=== PATIENT | female | born 1995 | race Caucasian/White ===

== ENCOUNTER 2017-03-08 15:45 | Inpatient (IN) | payer OTHER ==
[2017-03-08] MEDS ORDERED: DINOPROSTONE 10 MG VAGINAL SUPPOSITORY VG ONE (15:50)
--- NOTE | 2017-03-08 16:08 | HP ---
Past Medical History - Admission History of Present Illness: 21 yo , who transferred her care 4 weeks ago form [facility], admitted for induction of labor. Based on her care in [facility], her due date is 03/08/17. She c/o lower abdominal cramps and bloody discharge. History Source: Patient Limitations to Obtaining History: No Limitations - Past Medical History ...: 1 ...Para: 0 - Past Surgical History Past Surgical History: Yes: None Hx Myomectomy: No Hx Transabdominal Cerclage: No - Alcohol/Substance Use Hx Alcohol Use: No History of Substance Use: reports: None Home Medications - Allergies Allergies/Adverse Reactions: Allergies Allergy/AdvReac Type Severity Reaction Status Date / Time No Known Allergies Allergy Verified 03/04/17 08:43 - Home Medications Home Medications: Ambulatory Orders Vit/Iron Fumarate/FA [ Tablet] 1 tab PO DAILY 03/04/17 Family Disease History - Family Disease History Family History: Unremarkable Review of Systems - Review of Systems Constitutional: reports: No Symptoms Eyes: reports: No Symptoms HENT: reports: No Symptoms Neck: reports: No Symptoms Cardiovascular: reports: No Symptoms Respiratory: reports: No Symptoms Gastrointestinal: reports: No Symptoms Genitourinary: reports: Pain, Other (Bloody discharge) Breasts: reports: No Symptoms Reported Musculoskeletal: reports: No Symptoms Neurological: reports: No Symptoms Endocrine: reports: No Symptoms Hematology/Lymphatic: reports: No Symptoms Psychiatric: reports: No Symptoms Pain Intensity: 3 Physical Exam - Maternity Constitutional: Yes: Well Nourished Eyes: Yes: Conjunctiva Clear HENT: Yes: Atraumatic Neck: Yes: Supple Cardiovascular: Yes: Regular Rate and Rhythm Lungs: Clear to auscultation - Abdominal Exam/OB Number of Fetuses: Single Presentation: Vertex - Vaginal Exam/OB Dilatation (cm): 1 Effacement (%): 70 Amniotic Membrane Status: Intact Station: -2 - Physical Exam ...Motor Strength: WNL Psychiatric: Yes: Alert, Oriented Assessment/Plan IUP @ term Admit for induction of labor Cervidil induction Re-evaluate in 12 hours or before if indicated
[2017-03-08 16:23] VITALS: BMI 28.3
[2017-03-08] MEDS ORDERED: TUBERCULIN PPD 5 TU/0.1ML SYRINGE (IN PATIENT USE ONLY) ID ONE (18:04)
[2017-03-08 19:10] LABS: BASOPHIL 0.3 % (0-2.0); EOSINOPHIL 0.4 % (0-4.5); MCH 29.7 pg (25.7-33.7); MCHC 34.4 g/dl (32.0-36.0); MEAN CELL VOLUME 86.3 fl (80-96); MEAN PLT VOLUME 7.5 fl (7.5-11.1); NEUTROPHILS 61.4 % (42.8-82.8); PLATELET COUNT 294 K/MM3 (134-434); RDW 13.2 % (11.6-15.6); WHITE BLOOD COUNT 11.8 K/mm3 (4.0-10.0)
[2017-03-08 19:37] LABS: INR 0.94 (0.82-1.09); PROTHROMBIN TIME (PATIENT) 10.6 SEC (9.98-11.88)
[2017-03-08 19:40] LABS: ACTIVATED PTT 28.5 SECONDS (26.9-34.4)
[2017-03-08 19:44] LABS: ANION GAP 8 (8-16); CALCIUM 8.3 mg/dL (8.5-10.1); CO2 25 mmol/L (21-32); CREATININE 0.5 mg/dL (0.55-1.02); GLUCOSE,RANDOM 94 mg/dL (74-106)
[2017-03-08] MEDS: ELECTROLYTE-148 SOLN 1,000 ML IV SCH (20:15)
[2017-03-08 20:30] LABS: URINE MARIJUANA THC NEGATIVE ng/ml (CUTOFF=50)
[2017-03-08] MEDS ORDERED: AMPICILLIN - 2 GM in SODIUM CHLORIDE 100 ML IVPB ONE (21:00)
[2017-03-08] MEDS: AMPICILLIN - 1 GM in SODIUM CHLORIDE 100 ML IVPB SCH (23:29)
[2017-03-09] MEDS: AMPICILLIN - 1 GM in SODIUM CHLORIDE 100 ML IVPB SCH ×5 (01:00→21:28)
--- NOTE | 2017-03-09 06:33 | PN ---
Progress Note (short form) - Note Progress Note: Patient seen and evaluated. She c/o mild discomfort. She's status post Cervidil induction. FHR : 140-150's, no accelerations, non- reassuring [place] : + contractions q 1 min VE : 70 / -2 Intact A/P : Status post cervidil induction Non-Reassuring FHR Prep and shave Consent Consider
[2017-03-09] MEDS ORDERED: METHYLERGONOVINE MALEATE 0.2 MG/1 ML AMP IM PRN (08:30)
--- NOTE | 2017-03-09 08:34 | OP ---
Operative Note - Note: Operative Date: 03/09/17 Pre-Operative Diagnosis: Failed induction / Non-Reassuring Heart Rate Operation: Primary Low Transverse Findings: Bicornuate uterus Baby boy in Cephalic presentation Surgeon: Magalie Alarcon Air Tucker: Inez Flores Anesthesia: Spinal Specimens Removed: Placenta Estimated Blood Loss (mls): 500 Operative Report Dictated: Yes
--- NOTE | 2017-03-09 08:38 | DS ---
Physical Exam-WAREHOUSE RECEIVING SUPERVISOR Vital Signs: Vital Signs Temperature 97.9 F 03/09/17 05:00 Pulse Rate 87 03/09/17 05:00 Respiratory Rate 20 03/09/17 05:00 Blood Pressure 118/78 03/09/17 05:00 O2 Sat by Pulse Oximetry (%) Constitutional: Yes: Well Nourished Eyes: Yes: Conjunctiva Clear HENT: Yes: Atraumatic Neck: Yes: Supple, Trachea Midline Cardiovascular: Yes: Regular Rate and Rhythm Respiratory: Yes: Regular, CTA Bilaterally Gastrointestinal: Yes: Normal Bowel Sounds External Genitalia: Yes: Normal Vaginal Exam: Yes: Normal Cervix: Yes: Normal Wound/Incision: Yes: Clean/Dry, Steri Strips (in place) Neurological: Yes: Alert, Oriented ...Motor Strength: WNL Psychiatric: Yes: Alert, Oriented Labs: CBC, BMP 03/08/17 18:40 03/08/17 18:40 Delivery - Delivery Section: Primary Type of Anesthesia: Spinal EBL (cc): 500 Delivery, Single - Feeding Plan Initial Plan: Elected not to breastfeed exclusively throughout hospitalization Discharge Summary Reason For Visit: INDUCTION OF LABOR Current Active Problems Status post primary low transverse section (Acute) Uterus bicornis 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
[2017-03-09] MEDS ORDERED: ONDANSETRON 4 MG/2 ML VIAL IVPUSH PRN (08:45)
[2017-03-09] MEDS ORDERED: morphine SULFATE/Preservative Free 0.5 MG/ML (1cc Syringe) EP ONE (08:45)
--- NOTE | 2017-03-09 09:07 | OP ---
DATE OF OPERATION: 03/09/2017 PREOPERATIVE DIAGNOSIS: Failed induction and nonreassuring heart rate. POSTOPERATIVE DIAGNOSIS: Failed induction, nonreassuring heart rate, and bicornuate uterus affecting . SURGEON: Magalie Alarcon MD PACKING MACHINE PILOT CAN ROUTER: Dr. Porter ANESTHESIA: Spinal. COMPLICATIONS: None. ESTIMATED BLOOD LOSS: 500 mL. DESCRIPTION OF PROCEDURE: The patient was taken to the operating room where spinal anesthesia was administered. The patient was then prepped and draped in proper sterile fashion. A Pfannenstiel skin incision was made and carried down to the underlying layer of fascia. The fascia was incised in the midline and extended laterally. The superior aspect of the fascial incision was then grasped with a Jeanie clamp, elevated, and the rectus muscle dissected off bluntly. Attention was then turned to the inferior aspect of the fascial incision, which in a similar fashion was then grasped with a Jeanie clamp, elevated, and the rectus muscle dissected off bluntly. The rectus muscle was then in the midline. The peritoneum was identified and entered sharply with the Metzenbaum scissors. The peritoneal incision was extended superiorly and inferiorly with good visualization of the bladder. The vesicouterine peritoneum was then grasped with a Tashi and entered sharply with Metzenbaum scissors. This incision was extended laterally and a bladder flap created digitally. The bladder blade was reinserted. Using a 10 blade, the lower uterine segment was incised and the head delivered atraumatically. Nose and mouth were suctioned and the cord clamped and cut. The infant was handed to the awaiting sheet metal mechanic. The placenta was removed manually. The uterus exteriorized and cleared of all clots and debris. There was evidence of a bicornuate uterus with no separation in the midline. The uterus was then repaired using 0 Biosyn in a running, locked fashion. A 2nd layer of the same suture was used as a means to provide excellent hemostasis. The pelvis was then irrigated. The uterus was returned to the abdomen. The peritoneum was closed using 2-0 Biosyn. The fascia was reapproximated using 0 Vicryl in a running fashion. The skin was closed in a subcuticular fashion using 3-0 Vicryl. The patient tolerated the procedure well. The patient was then taken to PACU in stable condition. PATHOLOGY: Placenta. Renuka SERVIN/[id number]
[2017-03-09] MEDS: OXYTOCIN 20 UNITS in 0.9% NS 1,000 ML IV SCH (09:45)
[2017-03-09] MEDS: PRENATAL VITAMINS W/ FOLIC ACID TABLET (FP) PO SCH (09:54)
[2017-03-09] MEDS: IBUPROFEN 800 MG/8 ML IJ IVPB PRN ×3 (10:00→23:07)
[2017-03-09] MEDS: FERROUS SO4 325 MG TABLET (FP) PO SCH (10:13)
[2017-03-09] MEDS: ELECTROLYTE-148 SOLN 1,000 ML IV SCH (17:34)
[2017-03-10] MEDS: AMPICILLIN - 1 GM in SODIUM CHLORIDE 100 ML IVPB SCH ×2 (02:05→05:23)
--- NOTE | 2017-03-10 07:24 | PN ---
Post Progress Note - Subjective Subjective: Pt seen/evaluated and doing well post op. Pain controlled, tolerating diet. Ambulating, voiding. Denies CP/SOB/F/C/CHAPA. Type of Delivery: Primary C/S Vital Signs: Vital Signs Temperature 98.4 F 03/10/17 06:00 Pulse Rate 77 03/10/17 06:00 Respiratory Rate 20 03/10/17 06:00 Blood Pressure 98/66 03/10/17 06:00 O2 Sat by Pulse Oximetry (%) 100 03/09/17 09:25 Uterus: Yes: Fundus Firm, Fundus below umbilicus Incision: Yes: Dressing dry and intact Abdomen/GI: Yes: Abdomen soft, Tender (appropriately tender post op ), Tolerating PO. No: Abdominal Distention Extremities: Yes: Calves non-tender Perineum: Yes: Intact Activity: Ambulating - Labs Labs: CBC WBC 11.8 K/mm3 (4.0-10.0) H 03/08/17 18:40 RBC 3.77 M/mm3 (3.60-5.2) 03/08/17 18:40 Hgb 11.2 GM/dL (10.7-15.3) 03/08/17 18:40 Hct 32.6 % (32.4-45.2) 03/08/17 18:40 MCV 86.3 fl (80-96) 03/08/17 18:40 MCH 29.7 pg (25.7-33.7) 03/08/17 18:40 MCHC 34.4 g/dl (32.0-36.0) 03/08/17 18:40 RDW 13.2 % (11.6-15.6) 03/08/17 18:40 Plt Count 294 K/MM3 (134-434) 03/08/17 18:40 MPV 7.5 fl (7.5-11.1) 03/08/17 18:40 Neutrophils % 61.4 % (42.8-82.8) 03/08/17 18:40 Lymphocytes % 29.7 % (8-40) 03/08/17 18:40 Monocytes % 8.2 % (3.8-10.2) 03/08/17 18:40 Eosinophils % 0.4 % (0-4.5) 03/08/17 18:40 Basophils % 0.3 % (0-2.0) 03/08/17 18:40 Problem List - Problems (1) Status post primary low transverse section Code(s): Z98.891 - HISTORY OF UTERINE SCAR FROM PREVIOUS SURGERY Assessment/Plan 21 y/o POD#1 s/p primary delivery - AFVSS - CBC pending today - advance diet as tolerated, encourage ambulation - PO pain meds - routine post /post op care
[2017-03-10] MEDS: FERROUS SO4 325 MG TABLET (FP) PO SCH ×2 (07:43→16:50)
[2017-03-10] MEDS: ACETAMINOPHEN 325 MG TABLET (FP) PO PRN ×2 (08:04→14:05)
[2017-03-10] MEDS ORDERED: BISACODYL 10 MG SUPP.RECT RC PRN (08:31)
[2017-03-10 08:38] LABS: BASOPHIL 0.4 % (0-2.0); EOSINOPHIL 0.1 % (0-4.5); MCH 29.4 pg (25.7-33.7); MCHC 34.4 g/dl (32.0-36.0); MEAN CELL VOLUME 85.7 fl (80-96); MEAN PLT VOLUME 6.7 fl (7.5-11.1); NEUTROPHILS 80.3 % (42.8-82.8); PLATELET COUNT 247 K/MM3 (134-434); RDW 13.5 % (11.6-15.6); WHITE BLOOD COUNT 14.1 K/mm3 (4.0-10.0)
--- NOTE | 2017-03-10 09:25 | PN ---
Progress Note (short form) - Note Progress Note: ANESTHESIOLOGY POST-OP CHECK 21F S/P under spinal anesthesia, POD #1. No acuter complaints. Tolerating PO, denies N/V. Ambulating, voiding. Pain 5/10 and tolerable. Vital Signs Temperature 98.6 F 03/10/17 08:27 Pulse Rate 101 H 03/10/17 08:27 Respiratory Rate 20 03/10/17 08:27 Blood Pressure 100/65 03/10/17 08:27 O2 Sat by Pulse Oximetry (%) 100 03/09/17 09:25 Active Medications Acetaminophen (Tylenol -) 650 mg PO Q4H PRN PRN Reason: FEVER OR PAIN Last Admin: 03/10/17 08:04 Dose: 650 mg Bisacodyl (Dulcolax Suppository -) 10 mg RC PRN PRN PRN Reason: CONSTIPATION Diphenhydramine HCl (Benadryl Injection -) 25 mg IVPUSH Q4H PRN PRN Reason: Pruritis Ferrous Sulfate (Feosol -) 325 mg PO BIDWM [facility] Last Admin: 03/10/17 07:43 Dose: Not Given Parenteral Electrolytes (Plasma-Lyte 148 -) 1,000 mls @ 125 mls/hr IV ASDIR [facility] Last Admin: 03/09/17 17:34 Dose: Not Given Oxytocin/Sodium Chloride (Normal Saline+20 Units Oxytocin -) 1,000 mls @ 125 mls/hr IV ASDIR [facility] Last Admin: 03/09/17 09:45 Dose: 125 mls/hr Ibuprofen (Motrin -) 600 mg PO Q4H PRN PRN Reason: PAIN Ibuprofen (Caldolor Injection -) 800 mg IVPB Q8H PRN PRN Reason: PAIN OR FEVER Last Admin: 03/09/17 23:07 Dose: 800 mg Influenza Virus Vaccine Quadrival (Fluarix Quad 3144-1033 Syringe) 60 mcg IM ONCE ONE Stop: 03/10/17 10:01 Methylergonovine Maleate (Methergine Injection -) 0.2 mg IM Q4H PRN PRN Reason: Excessive Bleeding (L&D) Oxycodone HCl (Roxicodone -) 5 mg PO Q4H PRN PRN Reason: PAIN LEVEL 1-5 Multivit/Folic Acid/Iron ( Vitamins (Sjr) -) 1 tab PO DAILY DOMENIC Last Admin: 03/09/17 09:54 Dose: Not Given Simethicone (Mylicon -) 80 mg PO Q4H PRN PRN Reason: GAS GEn: Awake, alert No apparent anesthesia complications. PAin controlled. Cont management as per primary team
[2017-03-10] MEDS: SIMETHICONE 80 MG TAB.CHEW (FP) PO PRN ×2 (09:49→14:03)
[2017-03-10] MEDS: IBUPROFEN 600 MG TABLET (FP) PO PRN (09:49)
[2017-03-10] MEDS: PRENATAL VITAMINS W/ FOLIC ACID TABLET (FP) PO SCH (09:49)
[2017-03-10] MEDS ORDERED: FLU VACC QS2017-18 36MOS UP/PF 60 MCG/0.5 ML SYRINGE IM ONE (10:00)
[2017-03-10] MEDS: OXYTOCIN 20 UNITS in 0.9% NS 1,000 ML IV SCH (10:58)
[2017-03-10] MEDS: oxyCODONE HCL 5 MG TABLET PO PRN (14:03)
[2017-03-11] MEDS: oxyCODONE HCL 5 MG TABLET PO PRN (07:36)
[2017-03-11] MEDS: ACETAMINOPHEN 325 MG TABLET (FP) PO PRN (07:36)
--- NOTE | 2017-03-11 08:13 | PN ---
Progress Note (short form) - Note Progress Note: ANESTHESIOLOGY POST-OP CHECK 21F S/P under spinal anesthesia, POD #2. C/o bilateral frontal- occipital headache 10 severity with some mildly blurred vision. Symptoms improve in supine position.. Ambulating, voiding. Denies tinnitus or hearing loss. Vital Signs Temperature 98.0 F 03/10/17 21:43 Pulse Rate 108 H 03/10/17 21:43 Respiratory Rate 20 03/10/17 21:43 Blood Pressure 103/64 03/10/17 21:43 O2 Sat by Pulse Oximetry (%) 100 03/09/17 09:25 Active Medications Acetaminophen/Butalbital/Caffeine (Fioricet -) 2 tablet PO Q4H DOMENIC Bisacodyl (Dulcolax Suppository -) 10 mg RC PRN PRN PRN Reason: CONSTIPATION Diphenhydramine HCl (Benadryl Injection -) 25 mg IVPUSH Q4H PRN PRN Reason: Pruritis Ferrous Sulfate (Feosol -) 325 mg PO BIDWM [facility] Last Admin: 03/10/17 16:50 Dose: 325 mg Parenteral Electrolytes (Plasma-Lyte 148 -) 1,000 mls @ 125 mls/hr IV ASDIR [facility] Last Admin: 03/09/17 17:34 Dose: Not Given Parenteral Electrolytes (Plasma-Lyte 148 -) 1,000 mls @ 125 mls/hr IV ASDIR [facility]EN[facility] Ibuprofen (Motrin -) 600 mg PO Q4H PRN PRN Reason: PAIN Last Admin: 03/10/17 09:49 Dose: 600 mg Ibuprofen (Caldolor Injection -) 800 mg IVPB Q8H PRN PRN Reason: PAIN OR FEVER Last Admin: 03/09/17 23:07 Dose: 800 mg Methylergonovine Maleate (Methergine Injection -) 0.2 mg IM Q4H PRN PRN Reason: Excessive Bleeding (L&D) Oxycodone HCl (Roxicodone -) 5 mg PO Q4H PRN PRN Reason: PAIN LEVEL 1-5 Last Admin: 03/11/17 07:36 Dose: 5 mg Multivit/Folic Acid/Iron ( Vitamins (Sjr) -) 1 tab PO DAILY DOMENIC Last Admin: 03/10/17 09:49 Dose: 1 tab Simethicone (Mylicon -) 80 mg PO Q4H PRN PRN Reason: GAS Last Admin: 03/10/17 14:03 Dose: 80 mg GEn: Awake, alert Pt sitting in chair, reports headache 02/26. Pt laid supine and headache resolves. 21F s/p spinal anesthesia now with likely post-dural puncture headache. Pt informed of treatment approaches available to her: conservative vs epidural blood patch and the details of both discussed and patient expresses understanding and wishes to proceed with conservative therapy at this time. Patient aware she may call us back at any time if wishes to proceed with blood patch. Instructed nurse regarding new orders. - Start Fioricet 2 tabs PO q4 hours - Maintain IV fluid hydration and encourage PO fluids - Encourage PO caffeine (coffee/tea etc.) - Encourage bedrest as much as possible - Please call anesthesia at patients' request
[2017-03-11] MEDS ORDERED: ELECTROLYTE-148 SOLN 1,000 ML IV SCH (08:15)
[2017-03-11] MEDS: IBUPROFEN 600 MG TABLET (FP) PO PRN (08:37)
[2017-03-11] MEDS: FERROUS SO4 325 MG TABLET (FP) PO SCH ×2 (09:51→17:13)
[2017-03-11] MEDS: PRENATAL VITAMINS W/ FOLIC ACID TABLET (FP) PO SCH (09:51)
[2017-03-11] MEDS: ACETAMINOPHEN/CAFFEINE/BUTALBITAL 1 TAB PO SCH ×3 (11:49→20:43)
--- NOTE | 2017-03-11 11:50 | PN ---
Post Progress Note - Subjective Subjective: Pt c/o headache. Seen by anesthesia for ? spinal headache for possible blood patch. Currently patient refusing blood patch but states the po meds are helping. Otherwise feeling well. Pain controlled. +flatus and urination, no bowel movements. Denies CP/SOB/F/C/CHAPA. Type of Delivery: Primary C/S Vital Signs: Vital Signs Temperature 99.1 F 03/11/17 10:00 Pulse Rate 120 H 03/11/17 10:00 Respiratory Rate 20 03/11/17 10:00 Blood Pressure 113/78 03/11/17 10:00 O2 Sat by Pulse Oximetry (%) 100 03/09/17 09:25 Uterus: Yes: Fundus Firm, Fundus below umbilicus Incision: Yes: Sutures intact Abdomen/GI: Yes: Abdomen soft, Passing flatus, Tolerating PO. No: Abdominal Distention, Tender Lochia, amount: Small Extremities: Yes: Calves non-tender. No: Edema Perineum: Yes: Intact Activity: Ambulating - Labs Labs: CBC WBC 14.1 K/mm3 (4.0-10.0) H 03/10/17 08:00 RBC 3.22 M/mm3 (3.60-5.2) L 03/10/17 08:00 Hgb 9.5 GM/dL (10.7-15.3) L D 03/10/17 08:00 Hct 27.6 % (32.4-45.2) L D 03/10/17 08:00 MCV 85.7 fl (80-96) 03/10/17 08:00 MCH 29.4 pg (25.7-33.7) 03/10/17 08:00 MCHC 34.4 g/dl (32.0-36.0) 03/10/17 08:00 RDW 13.5 % (11.6-15.6) 03/10/17 08:00 Plt Count 247 K/MM3 (134-434) 03/10/17 08:00 MPV 6.7 fl (7.5-11.1) L D 03/10/17 08:00 Neutrophils % 80.3 % (42.8-82.8) D 03/10/17 08:00 Lymphocytes % 14.2 % (8-40) D 03/10/17 08:00 Monocytes % 5.0 % (3.8-10.2) 03/10/17 08:00 Eosinophils % 0.1 % (0-4.5) 03/10/17 08:00 Basophils % 0.4 % (0-2.0) 03/10/17 08:00 Problem List - Problems (1) Status post primary low transverse section Code(s): Z98.891 - HISTORY OF UTERINE SCAR FROM PREVIOUS SURGERY (2) Headache Code(s): R51 - HEADACHE Assessment/Plan 21 y/o POD#2 s/p primary delivery - AFVSS - Hgb 9.5 post op, stable and doing well - advance diet as tolerated, encourage ambulation - PO pain meds - CHAPA - continue PO analgesics for now, anesthesia evaluated for possible blood patch - pt currently refusing. - routine post /post op care
[2017-03-11] MEDS: SIMETHICONE 80 MG TAB.CHEW (FP) PO PRN (20:43)
[2017-03-12] MEDS: ACETAMINOPHEN/CAFFEINE/BUTALBITAL 1 TAB PO SCH ×6 (00:33→20:15)
[2017-03-12 07:20] LABS: BASOPHIL 0.5 % (0-2.0); EOSINOPHIL 3.3 % (0-4.5); MCH 29.1 pg (25.7-33.7); MCHC 33.8 g/dl (32.0-36.0); MEAN CELL VOLUME 85.9 fl (80-96); MEAN PLT VOLUME 6.6 fl (7.5-11.1); NEUTROPHILS 65.2 % (42.8-82.8); PLATELET COUNT 266 K/MM3 (134-434); RDW 13.4 % (11.6-15.6); WHITE BLOOD COUNT 11.8 K/mm3 (4.0-10.0)
[2017-03-12] MEDS: FERROUS SO4 325 MG TABLET (FP) PO SCH ×2 (08:40→17:00)
[2017-03-12] MEDS: PRENATAL VITAMINS W/ FOLIC ACID TABLET (FP) PO SCH (09:41)
--- NOTE | 2017-03-12 14:25 | PROC ---
Procedure Note Procedure: ANESTHESIOLOGY PROCEDURE NOTE Pt with likely post-dural puncture headache POD #3, was being managed medically since yesterday with mild relief now wants epidural blood patch. Informed consent obtained. Pt sitting, sterile prep and drape. 1% Lidocaine to skin x 2ml at ~L4-L5. 17G Tuohy to access epidural space with MARLEN to NS at 3cm. 20G PIV placed in left AC under sterile conditions by Dr Gonzalez and 25 ml of blood collected and subsequently injected into epidural space without difficulty while maintaining sterility. Needle removed and patient lay supine. No complications, pt tolerated procedure well.
[2017-03-13] MEDS: ACETAMINOPHEN/CAFFEINE/BUTALBITAL 1 TAB PO SCH ×4 (00:45→12:07)
[2017-03-13] MEDS: IBUPROFEN 600 MG TABLET (FP) PO PRN (02:00)
[2017-03-13] MEDS: FERROUS SO4 325 MG TABLET (FP) PO SCH (08:12)
[2017-03-13] MEDS: PRENATAL VITAMINS W/ FOLIC ACID TABLET (FP) PO SCH (09:31)
[2017-03-13 09:59] VITALS: BP 108/67; PULSE 110; TEMP 99.2
--- NOTE | 2017-03-13 16:08 | PATH ---
Surgical Pathology Report Patient Name: BLANCA GOLDBERG Med. Rec. #: [id number] /Age/Gender: 1995 (Age: 21) / F Account: [id number] Location: [facility] OBS/SERVICE PLANNER Taken: 03/09/2017 Received: 03/11/2017 Reported: 03/13/2017 Physicians: Magalie Alarcon M.D. Specimen(s) Received PLACENTA Clinical History , 40 weeks gestation Late transfer of care, failed induction, nonreassuring heart rate Bicornuate uterus Final Diagnosis PLACENTA, SECTION: THIRD TRIMESTER PLACENTA (366 g) WITH TRIVASCULAR UMBILICAL CORD AND UNREMARKABLE PLACENTAL MEMBRANES. Electronically Signed Carol Kilpatrick M.D. Gross Description The specimen is received fresh labeled placenta and is a 366 gram, 18.0 x 15.0 x 2.4 cm. placenta with attached membranes and umbilical cord. The attached membranes are garcia, translucent with focal opacities and insert marginally. The umbilical cord measures 31 cm. in length and averages 1 cm. in diameter. The cord inserts eccentrically, 3.5 cm. to the nearest margin. No true knots or strictures are identified. Cut surface of the umbilical cord reveals 3 vessels. The surface is bradford-blue with minimal fibrin deposition and appropriate caliber vessels. The maternal surface is red-brown with focal defects. Sectioning reveals red-brown, spongy parenchyma. No lesions are identified. Milling Supervisor sections are submitted in three cassettes as follows: 1- membrane rolls and umbilical cord; 2-3- full thickness sections of placenta. 03/12/2017 [facility]03/12/2017
--- NOTE | 2017-03-24 20:07 | OP ---
DATE OF OPERATION: 03/08/2017 PREOPERATIVE DIAGNOSIS: Failed induction. POSTOPERATIVE DIAGNOSIS: Failed induction. PROCEDURE: Primary low-transverse section. SURGEON: Barbie Alarcon MD ANESTHESIA: Epidural. COMPLICATIONS: None. ESTIMATED BLOOD LOSS: 600 mL. PROCEDURE: Patient was taken to the operating room, where epidural anesthesia was found to be adequate. Patient was then prepped and draped in proper sterile fashion. A Pfannenstiel skin incision was made and carried down through the underlying layer of fascia. The fascia was incised in the midline and extended laterally. The inferior aspect of the fascial incision was then grasped with a Jeanie clamp, elevated, and the rectus muscle dissected off bluntly. Attention was then turned to the superior aspect of the fascial incision which, in a similar fashion, was then grasped with a Jeanie clamp, elevated, and the rectus muscle dissected off bluntly. The rectus muscle was in the midline, the peritoneum identified and entered sharply with the Metzenbaum scissors. This incision was then extended superiorly and inferiorly, with good visualization of the bladder. A bladder blade was inserted and the vesicouterine peritoneum was then grasped with a shayy and entered sharply with the Metzenbaum scissors. This incision was extended laterally and a bladder flap created digitally. The bladder blade was then reinserted and the lower uterine segment was incised with a 10 blade. This incision was extended laterally and the head delivered atraumatically. Nose and mouth were suctioned and the cord clamped and cut. The infant was handed to the awaiting transmission engineer. The placenta was removed manually. The uterus was exteriorized and cleared of all clots and debris. The uterus was found to have 2 horns. The incision was repaired using 0 Biosyn. A 2nd layer of the same suture was used as a means to provide excellent hemostasis. Then the uterus was returned to the abdomen. The pelvis was completely irrigated. The peritoneum was closed using 2-0 Biosyn. The fascia was reapproximated using 0 Vicryl in a running fashion. The skin was closed in a subcuticular fashion using 3-0 Vicryl. Patient tolerated procedure well. Patient was then taken to PACU in stable condition. Pathology: Placenta. BARBIE ALARCON M.D. LL/[id number]
== END 2017-03-13 12:30 | disposition home or self-care (01) | DRG 540 ==
LOC: JLDR 15:45 → J3W 03-09 12:42
PROVIDERS: ADMIT Obstetrics & Gynecology; ATTEND Obstetrics & Gynecology
PROC: 3E0P7VZ Introduction of Hormone into Female Reproductive, Via Natural or Artificial Opening (ICD-10-PCS; 2017-03-08)
PROC: 10D00Z1 Extraction of Products of Conception, Low, Open Approach (ICD-10-PCS; principal; 2017-03-09)
PROC: 3E0R3GC Introduction of Other Therapeutic Substance into Spinal Canal, Percutaneous Approach (ICD-10-PCS; 2017-03-12)
DX: O76 Abnormality in fetal heart rate and rhythm complicating labor and delivery (principal); O61.0 Failed medical induction of labor; O34.03 Maternal care for unspecified congenital malformation of uterus, third trimester; Q51.3 Bicornate uterus; O29.43 Spinal and epidural anesthesia induced headache during pregnancy, third trimester; Z3A.40 40 weeks gestation of pregnancy; Z37.0 Single live birth
CPT/HCPCS: 36415; 80048; 80307; 85025; 85461; 85610; 85730; 86593; 86850; 86870; 86886; 86900; 86901; 86902; 86999; 88307-TC; 90686; G0008